=== PATIENT | female | born 1960 | race Caucasian/White ===

== ENCOUNTER 2017-11-22 11:39 | Inpatient (IN) | payer OTHER ==
[~2017-11-22] VITALS: Ht 160 cm; Wt 61.2 kg
[~2017-11-22 11:39] MED LIST: HUMALOG100 UNIT/1 SC; HUMALOG100 UNITS/ SQ; LANCETS1 EACH; LEVEMIR 3M100 UNITS/ SQ; LEVEMIR100 UNIT/1 SQ; LEXAPRO10 MG PO; LIPITOR20 MG PO; LISINOPRIL2.5 MG PO; LORCET 10-6501 EACH PO; METFORMIN HCL500 MG PO; NOVOLOG100 UNITS1 SQ; PEN NEEDLE1 EA10; ZESTRIL2.5 MG PO
[2017-11-22] MEDS ORDERED: ONDANSETRON HCL INJ 2 MG/ML VIAL IV STA (12:19)
[2017-11-22] MEDS ORDERED: ASPIRIN 81 MG CHEW TAB PO ONE (12:30)
[2017-11-22 12:32] LABS: BASOPHILS # (AUTO) 0.1 (0.0-0.1); BASOPHILS % 0.4 % (0.0-1.0); EOSINOPHILS % 0.2 % (0.0-6.0); HEMATOCRIT 46.3 % (34.2-44.1); HEMOGLOBIN 16.1 g/dL (12.0-16.0); LYMPHOCYTES # (AUTO) 1.9 (1.0-3.2); LYMPHOCYTES % 15.6 % (18.0-39.1); MEAN CORPUSCULAR HEMOGLOBIN 30.6 pg (28-32); MEAN CORPUSCULAR HGB CONC 34.8 g/dL (31-35); MEAN CORPUSCULAR VOLUME 87.9 fL (81-99); MONOCYTES # (AUTO) 0.8 (0.2-0.8); MONOCYTES % 6.6 % (4.4-11.3); NEUTROPHILS # (AUTO) 9.4 (2.1-6.9); NEUTROPHILS % 76.7 % (38.7-80.0); PLATELET COUNT 378 x10e3/uL (140-360); RED BLOOD COUNT 5.27 x10e6/uL (3.6-5.1); RED CELL DISTRIBUTION WIDTH 12.2 % (11.7-14.4)
[2017-11-22 12:35] LABS: INR 0.98; PROTHROMBIN TIME 12.2 seconds (11.9-14.5)
[2017-11-22 12:36] LABS: PARTIAL THROMBOPLASTIN TIME 27.9 seconds (23.8-35.5)
[2017-11-22 12:44] LABS: ALANINE AMINOTRANSFERASE 17 IU/L (0-55); ALBUMIN 3.9 g/dL (3.5-5.0); ALBUMIN/GLOBULIN RATIO 1.3 (0.8-2.0); ALKALINE PHOSPHATASE 70 IU/L (40-150); AMYLASE 30 U/L (25-125); ANION GAP 20.1 mmol/L (8-16); BLOOD UREA NITROGEN 12 mg/dL (7-26); BUN/CREATININE RATIO 14 (6-25); CALCIUM 9.1 mg/dL (8.4-10.2); CARBON DIOXIDE 20 mmol/L (22-29); CHLORIDE 96 mmol/L (98-107); CREATINE KINASE 63 IU/L (29-168); CREATININE, SERUM 0.85 mg/dL (0.57-1.11); EST GLOMERULAR FILTRATION RATE > 60 ML/MIN (60-); GLUCOSE 281 mg/dL (74-118); LIPASE 10 U/L (8-78); POTASSIUM 4.1 mmol/L (3.5-5.1); SODIUM 132 mmol/L (136-145)
[2017-11-22 13:03] LABS: THYROID STIMULATING HORMONE 2.947 uIU/mL (0.350-4.940)
--- NOTE | 2017-11-22 13:10 | Diagnostic Imaging Report ---
PROCEDURE:ABDOMEN ACUTE SERIES W/PA CXR COMPARISON:Chest radiograph 02/15/2017 INDICATIONS:ABDOMINAL PAIN, ABDOMINAL RUQ PAIN FINDINGS: CHEST: Lungs are well-inflated and clear. No pleural effusions or pneumothorax. Cardiomediastinal silhouette is unremarkable. BOWEL PATTERN: No abnormally distended air-filled loops of large or small bowel. Normal amount of stool in the colon. Multiple punctate densities projecting over the right lower quadrant may represent intraluminal contents. No free air under the diaphragm or suspicious air-fluid levels on upright view SOFT TISSUES: No acute findings. BONES: No acute findings. CONCLUSION: 1. No acute thoracic abnormality. 2. No evidence of bowel obstruction. Dictated by: Mike Prince M.D. on 11/22/2017 at 13:12 Electronically approved by: Mike Prince M.D. on 11/22/2017 at 13:12
--- NOTE | 2017-11-22 13:49 | Diagnostic Imaging Report ---
PROCEDURE:US GALLBLADDER COMPARISON:None. INDICATIONS:ABDOMEN PAIN; THROWING UP FOR 4 DAYS FINDINGS: LIVER: Size:15 cm in the right midclavicular line, normal Appearance:Normal echogenicity, smooth contour Mass:No focal masses GALLBLADDER: Stones/Sludge:None Appearance:No wall thickening, pericholecystic fluid or hydrops. 0.5 x 0.2 x 0.4 cm polyp. Sonographic Garcia's Sign:Negative BILE DUCTS: Intrahepatic Ducts:No dilation Extrahepatic Ducts:Common bile duct measures 0.3 cm, no dilatation. PANCREAS: Limited evaluation secondary to overlying bowel gas. Visualized portions of proximal body are normal. RIGHT KIDNEY: Size:10.7 cm in length Echogenicity:Normal Collecting System:No hydronephrosis Stone:None Cyst/Mass:None VESSELS: Aorta:Atherosclerotic calcifications. Otherwise, visualized portions are normal. Inferior Vena Cava:Visualized portions are normal. Main Portal Vein:1 cm, normal size with hepatopetal flow. FREE FLUID: No ascites or pleural effusions. CONCLUSION: No acute sonographic abnormalities. Small gallbladder polyp. Dictated by: Mike Prince M.D. on 11/22/2017 at 13:53 Electronically approved by: Mike Prince M.D. on 11/22/2017 at 13:53
[2017-11-22 13:53] LABS: CLARITY,URINE CLEAR (CLEAR); COLOR,URINE YELLOW (YELLOW); LEUKOCYTE ESTERASE ,URINE NEGATIVE (NEGATIVE); NITRITE,URINE NEGATIVE (NEGATIVE)
[2017-11-22 13:54] LABS: BILIRUBIN,URINE 1+ (NEGATIVE); KETONES,URINE 3+ (NEGATIVE); PROTEIN,URINE DIPSTICK NEGATIVE (NEGATIVE); URINE UROBILINOGEN 0.2 mg/dL (0.2 - 1)
[2017-11-22 13:55] LABS: BACTERIA,URINE FEW /HPF; EPITHELIAL CELLS,URINE FEW /LPF
[2017-11-22 13:56] LABS: RBC,URINE 0-5 /HPF (0-5)
[2017-11-22] MEDS ORDERED: SODIUM CHLORIDE 0.9% 1000ML 1,000 ML IV SCH (15:00)
[2017-11-22] MEDS: SODIUM CHLORIDE 0.9% 1000ML 1,000 ML IV STA ×2 (15:23→16:52)
[2017-11-22] MEDS ORDERED: DEXTROSE 50% SYRINGE 50 ML IV PRN (15:45)
[2017-11-22] MEDS ORDERED: ONDANSETRON HCL INJ 2 MG/ML VIAL IV PRN (15:45)
[2017-11-22] MEDS ORDERED: DEXTROSE 5%/0.45% SOD CHL 1,000 ML IV ONE ×2 (16:41→17:00)
--- NOTE | 2017-11-22 16:43 | Diagnostic Imaging Report ---
PROCEDURE: CT ABDOMEN AND PELVIS WITH CONTRAST TECHNIQUE: The abdomen and pelvis were scanned utilizing a multidetector helical scanner from the diaphragm to the lesser trochanter after the IV administration of 100 cc of Isovue 370 and the oral administration of water. Coronal and sagittal multiplanar reformations were obtained. DLP: 458.27 mGy-cm COMPARISON: CT abdomen and pelvis 04/02/2015 and 02/04/2014. Same day gallbladder ultrasound, chest radiograph, and KUB. HIDA scan and MRCP 04/04/2015. INDICATIONS: ABDOMINAL PAIN FINDINGS: LOWER THORAX: Normal. HEPATOBILIARY: No focal hepatic lesions. No biliary ductal dilatation. SPLEEN: No splenomegaly. PANCREAS: No focal masses or ductal dilatation. ADRENALS: No adrenal nodules. KIDNEYS/URETERS: No hydronephrosis, stones, or solid mass lesions. Tiny hypodensity in the superior right renal pole, too small to characterize but likely a cyst. PELVIC ORGANS/BLADDER: Stable appearance of the uterus since 02/04/2014 with prominence of the uterine vessels. No adnexal masses. Tubal ligation clips. No bladder wall thickening. PERITONEUM / RETROPERITONEUM: No free air or fluid. LYMPH NODES: No lymphadenopathy. VESSELS: Moderate atherosclerotic calcifications. Celiac, superior mesenteric, and inferior mesenteric arteries are patent. GI TRACT: No distention or wall thickening. Prominent gastric folds. Moderate amount of stool throughout the colon. Appendix not clearly visualized, although no soft tissue stranding or lymphadenopathy to suggest appendicitis. BONES AND SOFT TISSUES: Unremarkable. IMPRESSION: No acute abnormalities in the abdomen and pelvis. Prominent gastric folds which may reflect gastritis. Unremarkable CT appearance of the gallbladder. Of note, HIDA scan 04/04/2015 notes a gallbladder ejection fraction which supports the clinical diagnosis of chronic cholecystitis/gallbladder dyskinesia. Clinical correlation recommended. Dictated by: Mike Prince M.D. on 11/22/2017 at 16:46 Electronically approved by: Mike Prince M.D. on 11/22/2017 at 16:46
[2017-11-22] MEDS: METRONIDAZOLE 500MG/NS 100ML 100 ML IV SCH (16:50)
[2017-11-22] MEDS: INSULIN REGULAR, HUMAN 3ML VL 100 UNIT in SODIUM CHLORIDE 0.45% 100 ML 99 ML IV SCH ×2 (16:55)
--- NOTE | 2017-11-22 17:50 | History and Physical ---
CHIEF COMPLAINT: Nausea, vomiting, upper abdominal pain since last 3 to 4 days. HISTORY OF PRESENT MEDICAL ILLNESS: A 57-year-old pleasant white female with past medical history of multiple medical problems was admitted at [facility] with the above complaints. Patient was seen in my office yesterday with the above complaints. As per patient, she started having nausea, vomiting, upper abdominal pain since last 3 to 4 days, progressively getting worse; and, hence, patient came to my office yesterday. I referred patient to ER for further care and treatment. Patient came in ER today with the above complaints. No chest pain, no shortness of breath. No loss of consciousness. No palpitations. No headaches. No hematemesis, no melena, no hematuria, no dysuria. No fever, no cough, no witnessed seizures. PAST MEDICAL HISTORY 1. Insulin-dependent diabetes mellitus. 2. Hypertension. 3. Dyslipidemia. 4. Depression. 5. COPD. 6. Lung nodules. 7. Abnormal LFT. ALLERGIES: NO KNOWN DRUG ALLERGIES. MEDICATIONS: As listed in chart. REVIEW OF SYSTEMS: As per HPI. FAMILY HISTORY: Noncontributory. PHYSICAL EXAMINATION GENERAL: The patient is alert, awake, oriented x3, in no apparent distress, lying in bed. VITAL SIGNS: Temperature is 98. Pulse is 80 per minute. Respiratory rate is 18 per minute. Blood pressure is 122/84. Saturation is 98%. SKIN: No cyanosis. No icterus. No pallor. HEENT: Normocephalic, atraumatic. PERRLA plus. NECK: Soft and supple. No JVD. No carotid bruit. No lymphadenopathy. LUNGS: Air entry bilaterally equal. No rales or rhonchi. HEART: S1 and S2. No murmur, no gallop, no rub. ABDOMEN: Soft. Epigastric tenderness plus. Bowel sounds plus. CENTRAL NERVOUS SYSTEM: Alert, awake, oriented x3. No focal deficit. EXTREMITIES: No cyanosis, no clubbing, no edema. Peripheral pulses present. No calf pain. LABS ON ADMISSION TO ER: White count 12.2, hemoglobin 16.1, hematocrit 46.3, platelet 378. Sodium 132, potassium 4.1, chloride 96, bicarb 20, BUN 12, creatinine 0.8, glucose 281. Anion gap is 20.1. LFTs noted. Cardiac enzymes x1 negative. Amylase, lipase normal. TSH 2.9. Urine shows WBCs 11-20. Ultrasound of gallbladder shows no acute sonographic abnormality, small gallbladder polyp. Chest x-ray and x-ray KUB, no acute thoracic abnormality, no evidence of bowel obstruction. CT abdomen and pelvis pending. ASSESSMENT 1. Mild diabetic ketoacidosis. 2. Urinary tract infection. 3. Nausea, vomiting, abdominal pain, likely gastritis, rule out peptic ulcer disease. PLAN: Admit patient to ICU. Endocrine consult Dr. Tavera. He is aware about the patient. He has given orders for DKA to ER doctor. Serial lytes, serial Accu-Cheks. IV Levaquin, IV Flagyl. GI consultation Dr. Mattson. IV Protonix. Clear-liquid diet. Further care and treatment as per clinical course while patient in the hospital. Discussed with patient in detail. Job#: [id number] GRETA
[2017-11-22] MEDS ORDERED: MAGNESIUM SULF 1GRAM/DEXTROSE 100 ML IV PRN (18:00)
[2017-11-22] MEDS ORDERED: POTASSIUM CHLORIDE 20MEQ/100ML 100 ML IV PRN (18:00)
[2017-11-22] MEDS: LEVOFLOXACIN 500MG/D5W 100ML 100 ML IV SCH (19:12)
[2017-11-22] MEDS ORDERED: SODIUM CHLORIDE 0.9% 50ML 50 ML ONE (19:44)
[2017-11-22] MEDS ORDERED: IOPAMIDOL 370 MG/ML 200 ML INFUS..BTL INJ ONE (19:44)
[2017-11-23] MEDS: METRONIDAZOLE 500MG/NS 100ML 100 ML IV SCH ×2 (00:52→08:29)
[2017-11-23] MEDS: INSULIN REGULAR, HUMAN 3ML VL 100 UNIT in SODIUM CHLORIDE 0.45% 100 ML 99 ML IV SCH ×2 (03:14)
[2017-11-23] MEDS ORDERED: NOVOLOG100 UNITS1 SQ (05:19)
[2017-11-23 05:35] LABS: BASOPHILS # (AUTO) 0.1 (0.0-0.1); BASOPHILS % 0.5 % (0.0-1.0); EOSINOPHILS % 0.2 % (0.0-6.0); HEMATOCRIT 42.7 % (34.2-44.1); HEMOGLOBIN 14.8 g/dL (12.0-16.0); LYMPHOCYTES # (AUTO) 1.5 (1.0-3.2); LYMPHOCYTES % 12.4 % (18.0-39.1); MEAN CORPUSCULAR HEMOGLOBIN 30.3 pg (28-32); MEAN CORPUSCULAR HGB CONC 34.7 g/dL (31-35); MEAN CORPUSCULAR VOLUME 87.5 fL (81-99); MONOCYTES # (AUTO) 0.8 (0.2-0.8); MONOCYTES % 6.6 % (4.4-11.3); NEUTROPHILS # (AUTO) 9.9 (2.1-6.9); NEUTROPHILS % 79.7 % (38.7-80.0); PLATELET COUNT 299 x10e3/uL (140-360); RED BLOOD COUNT 4.88 x10e6/uL (3.6-5.1); RED CELL DISTRIBUTION WIDTH 12.1 % (11.7-14.4)
[2017-11-23 06:02] LABS: ALANINE AMINOTRANSFERASE 15 IU/L (0-55); ALBUMIN 3.4 g/dL (3.5-5.0); ALBUMIN/GLOBULIN RATIO 1.3 (0.8-2.0); ALKALINE PHOSPHATASE 57 IU/L (40-150); ANION GAP 15.2 mmol/L (8-16); BLOOD UREA NITROGEN 13 mg/dL (7-26); BUN/CREATININE RATIO 16 (6-25); CALCIUM 8.3 mg/dL (8.4-10.2); CARBON DIOXIDE 21 mmol/L (22-29); CHLORIDE 98 mmol/L (98-107); CREATININE, SERUM 0.79 mg/dL (0.57-1.11); EST GLOMERULAR FILTRATION RATE > 60 ML/MIN (60-); GLUCOSE 244 mg/dL (74-118); POTASSIUM 4.2 mmol/L (3.5-5.1); SODIUM 130 mmol/L (136-145)
[2017-11-23] MEDS: PANTOPRAZOLE 40 MG 10ML VIAL IV SCH (08:29)
[2017-11-23] MEDS ORDERED: ACETAMINOPHEN 325 MG TAB PO PRN (08:45)
[2017-11-23] MEDS ORDERED: INSULIN LISPRO 100 UNIT/1 ML 3ML VIAL SQ STA (08:52)
[2017-11-23] MEDS: LEVOFLOXACIN 500MG/D5W 100ML 100 ML IV SCH (09:35)
[2017-11-23] MEDS: INSULIN LISPRO 100 UNIT/1 ML 3ML VIAL SQ SCH ×3 (14:02→22:04)
[2017-11-23] MEDS ORDERED: SODIUM CHLORIDE 0.45% 1,000 ML IV SCH (14:15)
[2017-11-23 14:24] LABS: FREE T4 (FREE THYROXINE) 0.88 ng/dL (0.9-1.8); THYROID STIMULATING HORMONE 2.59 uIU/mL (0.350-4.940)
[2017-11-23 15:27] LABS: ANION GAP 21.2 mmol/L (8-16); BLOOD UREA NITROGEN 15 mg/dL (7-26); BUN/CREATININE RATIO 16 (6-25); CALCIUM 8.5 mg/dL (8.4-10.2); CARBON DIOXIDE 15 mmol/L (22-29); CHLORIDE 97 mmol/L (98-107); CREATININE, SERUM 0.94 mg/dL (0.57-1.11); EST GLOMERULAR FILTRATION RATE > 60 ML/MIN (60-); POTASSIUM 4.2 mmol/L (3.5-5.1); SODIUM 129 mmol/L (136-145)
[2017-11-23 15:29] LABS: GLUCOSE 408 mg/dL (74-118)
[2017-11-23] MEDS ORDERED: SODIUM CHLORIDE 0.9% 1000ML 1,000 ML ONE (15:46)
--- NOTE | 2017-11-23 17:03 | Consultation ---
DATE OF CONSULTATION: November 22, 2017 ENDOCRINE CONSULTATION This is a patient of Dr. Chilel. Thank you very much for referring this patient. This is a 57-year-old white female who is known to me from her previous hospital admission. She came to the hospital with history of nausea and vomiting. Her blood sugar was around 281 and anion gap was elevated at 21. The patient is a known diabetic for almost 8 years and she is supposed to be taking Levemir insulin twice a day and Humalog with each meal. Patient tells me that her blood sugars have been low so she has backed off taking the Levemir and takes on Humalog 4 to 6 units three times a day depending upon the blood sugars. Patient is a smoker. She also has history of COPD and hypertension. PHYSICAL EXAMINATION GENERAL: The patient is alert, awake, a little bit apprehensive. She is slightly dehydrated. VITALS: Heart rate is around 100. Blood pressure is 130/80 mmHg. HEENT: Examination essentially unremarkable. Thyroid is palpable. Clinically she is near euthyroid. CHEST: Bilateral vesicular breathing. She has mild bronchospasm. CARDIAC: First and second heart sounds. There is no 3rd or 4th heart sound. Ejection systolic murmur grade 2/6. 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 CLINICAL IMPRESSION 1. Diabetes mellitus type 1 . 2. Diabetic ketoacidosis. 3. Abdominal pain. 4. Chronic obstructive pulmonary disease. PLAN: At this time is to taper off the insulin drip slowly, monitor her blood sugars and put her back on the subcutaneous insulin. Thanks for referring this patient. I will be following this patient with you. Job#: [id number] VERNON
[2017-11-23 17:12] VITALS: BP 144/65
[2017-11-23 17:13] VITALS: BP 144/65
[2017-11-23 17:44] VITALS: BP 144/65
[2017-11-23 17:48] VITALS: BP 144/65
[2017-11-23 20:00] VITALS: BP 146/67
[2017-11-23 20:17] VITALS: BP 146/67
[2017-11-23] MEDS ORDERED: ZOLPIDEM TARTRATE 5 MG TAB PO PRN (21:00)
[2017-11-23] MEDS: INSULIN DETEMIR 100 UNIT/ML PEN SQ SCH (22:05)
[2017-11-24 00:38] VITALS: BP 101/50
[2017-11-24 04:00] VITALS: BP 134/66
[2017-11-24 06:11] LABS: BASOPHILS % 0.5 % (0.0-1.0); EOSINOPHILS # (AUTO) 0.2 (0.0-0.4); EOSINOPHILS % 1.8 % (0.0-6.0); HEMATOCRIT 43.4 % (34.2-44.1); LYMPHOCYTES # (AUTO) 3.2 (1.0-3.2); LYMPHOCYTES % 37.8 % (18.0-39.1); MEAN CORPUSCULAR HEMOGLOBIN 30.4 pg (28-32); MEAN CORPUSCULAR HGB CONC 34.6 g/dL (31-35); MONOCYTES % 11.2 % (4.4-11.3); NEUTROPHILS # (AUTO) 4.1 (2.1-6.9); NEUTROPHILS % 48.3 % (38.7-80.0); PLATELET COUNT 322 x10e3/uL (140-360); RED BLOOD COUNT 4.93 x10e6/uL (3.6-5.1); RED CELL DISTRIBUTION WIDTH 12.1 % (11.7-14.4)
[2017-11-24 06:43] LABS: ALANINE AMINOTRANSFERASE 13 IU/L (0-55); ALBUMIN 3.4 g/dL (3.5-5.0); ALBUMIN/GLOBULIN RATIO 1.4 (0.8-2.0); ALKALINE PHOSPHATASE 55 IU/L (40-150); ANION GAP 12.2 mmol/L (8-16); BLOOD UREA NITROGEN 10 mg/dL (7-26); BUN/CREATININE RATIO 14 (6-25); CALCIUM 8.8 mg/dL (8.4-10.2); CARBON DIOXIDE 28 mmol/L (22-29); CHLORIDE 99 mmol/L (98-107); CREATININE, SERUM 0.72 mg/dL (0.57-1.11); EST GLOMERULAR FILTRATION RATE > 60 ML/MIN (60-); POTASSIUM 4.2 mmol/L (3.5-5.1); SODIUM 135 mmol/L (136-145)
[2017-11-24 06:53] LABS: GLUCOSE 46 mg/dL (74-118)
[2017-11-24] MEDS: INSULIN LISPRO 100 UNIT/1 ML 3ML VIAL SQ SCH ×6 (07:30→17:03)
--- NOTE | 2017-11-24 07:36 | Consultation ---
DATE OF CONSULTATION: November 23, 2017 GASTROENTEROLOGY CONSULTATION REFERRING PHYSICIAN: Dr. Douglass REASON FOR CONSULTATION: Nausea and vomiting. HISTORY OF PRESENT ILLNESS: Ms. Archuleta is a pleasant 57-year-old woman with below history. She came in with nausea, vomiting and had DKA. She reports a history of brittle diabetes. She reports that earlier this week she ate out at [employer]. A family member ate the same thing she ate. They both became ill. However, she became more ill than the other family members who just had nausea. She had nausea, vomiting, epigastric pain for about 3 days. She came in to the ER when she was not able to tolerate p.o. and was dehydrated. She has not had any alteration of bowels. She has not had any overt bleeding. PAST MEDICAL HISTORY 1. Insulin-dependent diabetes mellitus, which she reports is brittle and has a history of DKA. 2. Hypertension. 3. Dyslipidemia. 4. Depression. 5. COPD. 6. Lung nodules. 7. History of elevated LFTs. MEDICATION ALLERGIES: REVIEWED. PLEASE SEE [facility] MEDICATION RECONCILIATION FORM. MEDICATION: Reviewed. Please see [facility] medication reconciliation form. SOCIAL HISTORY: Denies any alcohol. No illicit substances. History of tobacco positive. FAMILY HISTORY: Reviewed and noncontributory. REVIEW OF SYSTEMS: A 10-system review is otherwise unremarkable. PHYSICAL EXAMINATION GENERAL: Pleasant, alert and oriented and in no acute distress. HEENT: Pupils equal, round and reactive. NECK: Supple. LUNGS: Clear. CARDIOVASCULAR: S1 and S2. ABDOMEN: Soft. Mildly tender in the epigastric region. No rebound, guarding or mass. EXTREMITIES: No clubbing, cyanosis or edema. PSYCH: Calm and cooperative. NEUROLOGIC: Nonfocal. HEM/ONC: No bruising or adenopathy. Electronic health records reviewed for laboratory and radiologic studies, as well as history. ASSESSMENT 1. Nausea, vomiting and epigastric pain, which I believe is an acute infectious gastritis/gastroenteritis: She had a suspicious food exposure with another family member who was also sick. I suspect that as she is already feeling better and able to tolerate p.o. and no longer having any vomiting that she will continue to improve with supportive care. 2. History of diabetes which is brittle and diabetic ketoacidosis: Already seen by endocrine. Diabetic ketoacidosis resolved. Encourage glycemic control. Thank you very much for asking me to see Ms. Archuleta. Any questions or concerns, please do not hesitate to contact me. Will follow with you. Job#: [id number] OSIEL
[2017-11-24 07:46] VITALS: BP 145/71
[2017-11-24] MEDS: INSULIN DETEMIR 100 UNIT/ML PEN SQ SCH (08:00)
[2017-11-24] MEDS: PANTOPRAZOLE 40 MG 10ML VIAL IV SCH (08:52)
[2017-11-24] MEDS: LEVOFLOXACIN 500MG/D5W 100ML 100 ML IV SCH (08:52)
[2017-11-24] MEDS ORDERED: PANTOPRAZOLE SO40 MG PO (10:59)
[2017-11-24] MEDS ORDERED: FLAGYL500 MG PO (11:00)
[2017-11-24] MEDS ORDERED: LEVAQUIN500 MG PO (11:00)
[2017-11-24 12:11] VITALS: BP 148/64
== END 2017-11-24 17:59 | disposition home or self-care (01) | DRG 638 ==
LOC: ER 11:39 → ERHOLD 15:51 → MED/SURG 11-23 17:05
PROVIDERS: ADMIT Internal Medicine; ATTEND Internal Medicine
DX: E11.10 Type 2 diabetes mellitus with ketoacidosis without coma (principal); N39.0 Urinary tract infection, site not specified; K29.70 Gastritis, unspecified, without bleeding; F17.210 Nicotine dependence, cigarettes, uncomplicated; J44.9 Chronic obstructive pulmonary disease, unspecified; Z79.4 Long term (current) use of insulin; E78.5 Hyperlipidemia, unspecified; F32.9 Major depressive disorder, single episode, unspecified
CPT/HCPCS: 36415; 74022; 74177; 76705; 80048; 80053; 81001; 82150; 82550; 82553; 82948; 83036; 83690; 83735; 84439; 84443; 84484; 85025; 85610; 85730; 87040; 87086; 93005; 99285; J1956; J2405; J3475; J7030; Q9967

== ENCOUNTER 2018-08-12 10:06 | Emergency (ER) | payer OTHER ==
[~2018-08-12] VITALS: Ht 160 cm; Wt 61.2 kg
[~2018-08-12 10:06] MED LIST changes: +FLAGYL500 MG PO; +LEVAQUIN500 MG PO; +PANTOPRAZOLE SO40 MG PO
[2018-08-12] MEDS ORDERED: TRAMADOL HCL 50 MG TAB PO NR (10:45)
[2018-08-12] MEDS ORDERED: ULTRAM 50MG50 MG PO (11:06)
[2018-08-12] MEDS ORDERED: ROBAXIN-750750 MG PO (11:06)
--- NOTE | 2018-08-12 11:41 | Diagnostic Imaging Report ---
EXAMINATION: CHEST 2 VIEWS INDICATION: Cough, thoracic back pain. COMPARISON: Chest radiograph 02/15/2017. FINDINGS: TUBES and LINES: None. LUNGS: Lungs are well inflated. Lungs are clear. There is no evidence of pneumonia or pulmonary edema. PLEURA: No pleural effusion or pneumothorax. HEART AND MEDIASTINUM: The cardiomediastinal silhouette is unremarkable. BONES AND SOFT TISSUES: Possible minimal loss of vertebral body height in a lower thoracic vertebral body, likely T11. No bony retropulsion. No evidence of displaced rib fracture. UPPER ABDOMEN: No free air under the diaphragm. IMPRESSION: Possible minimal compression deformity in a lower thoracic vertebral body, likely T11. Suggest clinical correlation for point tenderness at this location. Clear lungs. Signed by: Dr. Freda Busby MD on 08/12/2018 11:38 AM
--- NOTE | 2018-08-12 13:06 | NUR ---
PATIENT CALLED BACK TO TRIAGE FOR RE-EVALUATION AND DISCHARGE INFORMATION. SYLVIE Mendenhall SPEAKING WITH PATIENT.
== END 2018-08-12 13:14 | disposition home or self-care (01) ==
LOC: ER 10:06
DX: M54.6 Pain in thoracic spine (principal); S23.3XXA Sprain of ligaments of thoracic spine, initial encounter; I10 Essential (primary) hypertension; E11.9 Type 2 diabetes mellitus without complications; J44.9 Chronic obstructive pulmonary disease, unspecified; E78.5 Hyperlipidemia, unspecified; F32.9 Major depressive disorder, single episode, unspecified
CPT/HCPCS: 71046; 99283

== ENCOUNTER 2018-08-20 04:30 | Emergency (ER) | payer OTHER ==
[~2018-08-20] VITALS: Ht 160 cm; Wt 61.2 kg
[~2018-08-20 04:30] MED LIST changes: +ROBAXIN-750750 MG PO; +ULTRAM 50MG50 MG PO
--- NOTE | 2018-08-20 06:00 | NUR ---
per md, do not draw cbc, cmp.
[2018-08-20 06:01] LABS: CLARITY,URINE CLEAR (CLEAR); COLOR,URINE YELLOW (YELLOW); LEUKOCYTE ESTERASE ,URINE TRACE (NEGATIVE); NITRITE,URINE NEGATIVE (NEGATIVE); PROTEIN,URINE DIPSTICK NEGATIVE (NEGATIVE)
[2018-08-20 06:02] LABS: AMPHETAMINES SCREEN,URINE POSITIVE (NEGATIVE); BENZODIAZEPINES SCREEN,URINE NEGATIVE (NEGATIVE); KETONES,URINE NEGATIVE (NEGATIVE); PHENCYCLIDINE SCREEN,URINE NEGATIVE (NEGATIVE)
[2018-08-20 06:03] LABS: BILIRUBIN,URINE NEGATIVE (NEGATIVE); URINE UROBILINOGEN 0.2 mg/dL (0.2 - 1)
[2018-08-20 06:10] LABS: BACTERIA,URINE FEW /HPF; EPITHELIAL CELLS,URINE FEW /LPF; RBC,URINE 0-5 /HPF (0-5)
[2018-08-20] MEDS ORDERED: KEFLEX500 MG PO (06:26)
--- NOTE | 2018-08-20 07:02 | NUR ---
received report fromoff going nurse. patient in room in bed, family at bedside. no s/s o acute distress. resp even and nonlabored. pending dicharge orders from ER MD.
--- NOTE | 2018-08-20 07:02 | NUR ---
walking rounds with meghan felix
== END 2018-08-20 07:57 | disposition home or self-care (01) ==
LOC: ER 04:30
DX: R30.0 Dysuria (principal); N30.90 Cystitis, unspecified without hematuria; I10 Essential (primary) hypertension; E11.9 Type 2 diabetes mellitus without complications; J44.9 Chronic obstructive pulmonary disease, unspecified; F32.9 Major depressive disorder, single episode, unspecified
CPT/HCPCS: 36415; 80307; 81001; 82948; 99284

== ENCOUNTER → 2018-09-05 | Outpatient (CLI) | payer OTHER ==
[~2018-09-05] MED LIST changes: +KEFLEX500 MG PO
== END ==
LOC: MAMMO 10:33
PROVIDERS: ATTEND Internal Medicine
DX: Z12.31 Encounter for screening mammogram for malignant neoplasm of breast (principal)
CPT/HCPCS: 77067

== ENCOUNTER 2022-01-04 15:32 | Inpatient (IN) | payer OTHER ==
[~2022-01-04] VITALS: Ht 160 cm; Wt 63.7 kg
[2022-01-04] MEDS ORDERED: DEXAMETHASONE SOD PHOS 10 MG/1 ML VIAL IM ONE (16:15)
[2022-01-04] MEDS ORDERED: ALBUTEROL SULFATE HFA 8GM INHALATION AEROSOL INH PRN (16:15)
[2022-01-04] MEDS ORDERED: SODIUM CHLORIDE 0.9% 1000ML 1,000 ML IV STA (16:30)
[2022-01-04 17:34] LABS: BASOPHILS % 0.4 % (0.0-1.0); EOSINOPHILS # (AUTO) 0.1 (0.0-0.4); EOSINOPHILS % 0.9 % (0.0-6.0); HEMATOCRIT 44.7 % (34.2-44.1); HEMOGLOBIN 14.3 g/dL (12.0-16.0); LYMPHOCYTES # (AUTO) 0.6 (1.0-3.2); LYMPHOCYTES % 7.1 % (18.0-39.1); MEAN CORPUSCULAR HEMOGLOBIN 29.2 pg (28-32); MEAN CORPUSCULAR VOLUME 91.2 fL (81-99); MONOCYTES # (AUTO) 1.1 (0.2-0.8); MONOCYTES % 13.7 % (4.4-11.3); NEUTROPHILS # (AUTO) 6.1 (2.1-6.9); PLATELET COUNT 339 x10e3/uL (140-360)
[2022-01-04] MEDS: DEXAMETHASONE SOD PHOS 10 MG/1 ML VIAL IV SCH (17:36)
[2022-01-04 17:41] LABS: INR 0.84; PROTHROMBIN TIME 12.3 seconds (11.9-14.5)
[2022-01-04 17:42] LABS: PARTIAL THROMBOPLASTIN TIME 31.8 seconds (23.8-35.5)
[2022-01-04 17:51] LABS: ALANINE AMINOTRANSFERASE 12 IU/L (0-55); ALBUMIN 2.9 g/dL (3.5-5.0); ALBUMIN/GLOBULIN RATIO 0.7 (0.8-2.0); ALKALINE PHOSPHATASE 106 IU/L (40-150); ANION GAP 15.7 mmol/L (8-16); BLOOD UREA NITROGEN 13 mg/dL (7-26); BUN/CREATININE RATIO 16 (6-25); CALCIUM 9.1 mg/dL (8.4-10.2); CARBON DIOXIDE 30 mmol/L (22-29); CHLORIDE 97 mmol/L (98-107); CREATINE KINASE 69 IU/L (29-168); CREATININE, SERUM 0.81 mg/dL (0.57-1.11); GLUCOSE 319 mg/dL (74-118); MAGNESIUM 1.8 MG/DL (1.3-2.1); POTASSIUM 4.7 mmol/L (3.5-5.1); SODIUM 138 mmol/L (136-145)
[2022-01-04] MEDS ORDERED: ACETAMINOPHEN 325 MG TAB PO PRN (18:45)
[2022-01-04] MEDS ORDERED: DEXTROSE 50% SYRINGE 50 ML IV PRN (18:45)
[2022-01-04] MEDS ORDERED: INSULIN LISPRO 100 UNIT/1 ML 3ML VIAL SQ SCH (21:00)
[2022-01-04] MEDS ORDERED: HYDRALAZINE HCL 20 MG/ML VIAL IV PRN (21:45)
[2022-01-04] MEDS ORDERED: ONDANSETRON HCL INJ 2MG/ML 2ML 2 MG/ML VIAL IV PRN (21:45)
[2022-01-04] MEDS ORDERED: POLYETHYLENE GLYCOL 3350 17 GM PACK PO PRN (21:45)
[2022-01-04] MEDS ORDERED: humalog SC (22:32)
[2022-01-04] MEDS ORDERED: TRESIBA100 UNIT/1 SC (22:32)
[2022-01-04] MEDS ORDERED: LYRICA150 MG PO (22:32)
[2022-01-04] MEDS ORDERED: SIMVASTATIN20 MG PO (22:32)
[2022-01-05] VITALS (8 sets, daily range): BP systolic 119–159; BP diastolic 57–78
[2022-01-05] MEDS ORDERED: CYMBALTA30 MG PO (00:31)
[2022-01-05] MEDS: ACETAMINOPHEN 325 MG TAB PO PRN (03:40)
[2022-01-05 06:21] LABS: BASOPHILS % 0.3 % (0.0-1.0); HEMATOCRIT 40.1 % (34.2-44.1); HEMOGLOBIN 12.9 g/dL (12.0-16.0); LYMPHOCYTES # (AUTO) 0.7 (1.0-3.2); LYMPHOCYTES % 10.1 % (18.0-39.1); MEAN CORPUSCULAR HEMOGLOBIN 28.7 pg (28-32); MEAN CORPUSCULAR HGB CONC 32.2 g/dL (31-35); MEAN CORPUSCULAR VOLUME 89.1 fL (81-99); MONOCYTES # (AUTO) 0.6 (0.2-0.8); MONOCYTES % 8.3 % (4.4-11.3); NEUTROPHILS # (AUTO) 5.9 (2.1-6.9); NEUTROPHILS % 80.3 % (38.7-80.0); PLATELET COUNT 314 x10e3/uL (140-360); RED CELL DISTRIBUTION WIDTH 12.9 % (11.7-14.4)
[2022-01-05 07:03] LABS: ALBUMIN 2.5 g/dL (3.5-5.0); ALBUMIN/GLOBULIN RATIO 0.7 (0.8-2.0); ANION GAP 18.1 mmol/L (8-16); CALCIUM 8.3 mg/dL (8.4-10.2); CHOL/HDL RATIO 3.2 (3.0-3.6); CREATININE, SERUM 0.8 mg/dL (0.57-1.11); MAGNESIUM 1.7 MG/DL (1.3-2.1); PHOSPHORUS 3.7 MG/DL (2.3-4.7); POTASSIUM 5.1 mmol/L (3.5-5.1)
[2022-01-05 07:22] LABS: THYROID STIMULATING HORMONE 0.919 uIU/mL (0.350-4.940)
[2022-01-05] MEDS: FAMOTIDINE 20 MG TAB PO SCH ×2 (08:15→17:28)
[2022-01-05] MEDS: DEXAMETHASONE SOD PHOS 10 MG/1 ML VIAL IV SCH (08:16)
[2022-01-05] MEDS: DOCUSATE SODIUM 100 MG CAP PO SCH ×2 (08:17→17:00)
[2022-01-05] MEDS: PREGABALIN 75 MG CAP PO SCH ×3 (08:17→20:32)
[2022-01-05] MEDS: CHOLECALCIFEROL 400 UNIT TAB PO SCH (08:18)
[2022-01-05] MEDS: ENOXAPARIN INJ 80 MG/0.8 ML SYR SC SCH ×2 (08:18→17:28)
[2022-01-05] MEDS: SIMVASTATIN 20 MG TAB PO SCH (08:18)
[2022-01-05] MEDS ORDERED: SODIUM CHLORIDE 0.9% 250ML 250 ML ONE (08:45)
[2022-01-05] MEDS ORDERED: ZINC SULFATE 220 MG CAP PO SCH (09:00)
[2022-01-05] MEDS ORDERED: ASCORBIC ACID 500 MG TAB PO SCH (09:00)
[2022-01-05] MEDS ORDERED: DEXTROSE 50% SYRINGE 50 ML IV PRN ×2 (10:45→12:45)
[2022-01-05] MEDS ORDERED: INSULIN GLARGINE 100 UNITS/ML VIAL SQ SCH (12:00)
[2022-01-05] MEDS: INSULIN LISPRO 100 UNIT/1 ML 3ML VIAL SQ SCH ×3 (12:45→20:34)
[2022-01-05] MEDS ORDERED: REMDESIVIR 100MG 200 MG in SODIUM CHLORIDE 0.9% 100 ML IV ONE (15:00)
[2022-01-05] MEDS ORDERED: ENOXAPARIN INJ 80 MG/0.8 ML SYR SC SCH (17:00)
[2022-01-05] MEDS: ASCORBIC ACID 500 MG TAB PO SCH (17:28)
[2022-01-05] MEDS: INSULIN GLARGINE 100 UNITS/ML VIAL SQ SCH (20:35)
[2022-01-05] MEDS: TEMAZEPAM 15 MG CAP PO PRN (20:41)
[2022-01-06] VITALS (8 sets, daily range): BP systolic 121–142; BP diastolic 60–74
[2022-01-06] MEDS: ACETAMINOPHEN 325 MG TAB PO PRN (06:24)
[2022-01-06 07:30] LABS: BASOPHILS % 0.4 % (0.0-1.0); EOSINOPHILS % 0.4 % (0.0-6.0); HEMATOCRIT 39.2 % (34.2-44.1); HEMOGLOBIN 12.8 g/dL (12.0-16.0); LYMPHOCYTES # (AUTO) 1.9 (1.0-3.2); LYMPHOCYTES % 18.8 % (18.0-39.1); MEAN CORPUSCULAR HEMOGLOBIN 29.1 pg (28-32); MEAN CORPUSCULAR HGB CONC 32.7 g/dL (31-35); MEAN CORPUSCULAR VOLUME 89.1 fL (81-99); MONOCYTES # (AUTO) 1.5 (0.2-0.8); MONOCYTES % 14.7 % (4.4-11.3); NEUTROPHILS # (AUTO) 6.6 (2.1-6.9); NEUTROPHILS % 64.9 % (38.7-80.0); PLATELET COUNT 355 x10e3/uL (140-360); RED CELL DISTRIBUTION WIDTH 13.1 % (11.7-14.4)
[2022-01-06 07:52] LABS: ALBUMIN 2.4 g/dL (3.5-5.0); ALBUMIN/GLOBULIN RATIO 0.7 (0.8-2.0); ANION GAP 11.3 mmol/L (8-16); CALCIUM 8.3 mg/dL (8.4-10.2); CREATININE, SERUM 0.74 mg/dL (0.57-1.11); POTASSIUM 4.3 mmol/L (3.5-5.1)
[2022-01-06] MEDS: FAMOTIDINE 20 MG TAB PO SCH ×2 (08:28→16:06)
[2022-01-06] MEDS: DEXAMETHASONE SOD PHOS 10 MG/1 ML VIAL IV SCH (08:29)
[2022-01-06] MEDS: CEFTRIAXONE 2 GM in SODIUM CHLORIDE 0.9% 100 ML IV SCH (08:29)
[2022-01-06] MEDS: DOCUSATE SODIUM 100 MG CAP PO SCH ×2 (08:30→17:00)
[2022-01-06] MEDS: SIMVASTATIN 20 MG TAB PO SCH (08:31)
[2022-01-06] MEDS: PREGABALIN 75 MG CAP PO SCH ×3 (08:31→20:40)
[2022-01-06] MEDS: ENOXAPARIN INJ 80 MG/0.8 ML SYR SC SCH ×2 (08:31→17:23)
[2022-01-06] MEDS: ASCORBIC ACID 500 MG TAB PO SCH ×2 (08:31→17:23)
[2022-01-06] MEDS: ZINC SULFATE 50 MG CAP PO SCH (08:31)
[2022-01-06] MEDS: CHOLECALCIFEROL 400 UNIT TAB PO SCH (08:31)
[2022-01-06] MEDS: INSULIN LISPRO 100 UNIT/1 ML 3ML VIAL SQ SCH ×4 (08:35→20:41)
[2022-01-06] MEDS: INSULIN GLARGINE 100 UNITS/ML VIAL SQ SCH ×2 (08:49→20:41)
[2022-01-06] MEDS: REMDESIVIR 100MG 100 MG in SODIUM CHLORIDE 0.9% 100 ML IV SCH (14:15)
[2022-01-06] MEDS: TEMAZEPAM 15 MG CAP PO PRN (20:40)
[2022-01-07] VITALS (8 sets, daily range): BP systolic 119–134; BP diastolic 69–79
[2022-01-07] MEDS: INSULIN LISPRO 100 UNIT/1 ML 3ML VIAL SQ SCH ×4 (07:30→21:42)
[2022-01-07 07:56] LABS: BASOPHILS % 0.5 % (0.0-1.0); EOSINOPHILS # (AUTO) 0.1 (0.0-0.4); EOSINOPHILS % 1.2 % (0.0-6.0); HEMATOCRIT 42.2 % (34.2-44.1); HEMOGLOBIN 13.4 g/dL (12.0-16.0); LYMPHOCYTES # (AUTO) 2.4 (1.0-3.2); LYMPHOCYTES % 27.6 % (18.0-39.1); MEAN CORPUSCULAR HEMOGLOBIN 28.6 pg (28-32); MEAN CORPUSCULAR HGB CONC 31.8 g/dL (31-35); MONOCYTES # (AUTO) 1.2 (0.2-0.8); MONOCYTES % 13.6 % (4.4-11.3); NEUTROPHILS # (AUTO) 4.9 (2.1-6.9); NEUTROPHILS % 56.4 % (38.7-80.0); PLATELET COUNT 333 x10e3/uL (140-360); RED BLOOD COUNT 4.69 x10e6/uL (3.6-5.1); RED CELL DISTRIBUTION WIDTH 13.2 % (11.7-14.4)
[2022-01-07 08:17] LABS: ALBUMIN 2.5 g/dL (3.5-5.0); ALBUMIN/GLOBULIN RATIO 0.8 (0.8-2.0); ANION GAP 10.8 mmol/L (8-16); CALCIUM 8.3 mg/dL (8.4-10.2); CREATININE, SERUM 0.65 mg/dL (0.57-1.11); POTASSIUM 3.8 mmol/L (3.5-5.1)
[2022-01-07] MEDS: ASCORBIC ACID 500 MG TAB PO SCH ×2 (08:43→16:44)
[2022-01-07] MEDS: SIMVASTATIN 20 MG TAB PO SCH (08:43)
[2022-01-07] MEDS: ZINC SULFATE 50 MG CAP PO SCH (08:43)
[2022-01-07] MEDS: DEXAMETHASONE SOD PHOS 10 MG/1 ML VIAL IV SCH (08:43)
[2022-01-07] MEDS: DOCUSATE SODIUM 100 MG CAP PO SCH ×2 (08:43→16:44)
[2022-01-07] MEDS: PREGABALIN 75 MG CAP PO SCH ×3 (08:43→21:42)
[2022-01-07] MEDS: CHOLECALCIFEROL 400 UNIT TAB PO SCH (08:43)
[2022-01-07] MEDS: ENOXAPARIN INJ 80 MG/0.8 ML SYR SC SCH ×2 (08:43→16:44)
[2022-01-07] MEDS: CEFTRIAXONE 2 GM in SODIUM CHLORIDE 0.9% 100 ML IV SCH (08:43)
[2022-01-07] MEDS: FAMOTIDINE 20 MG TAB PO SCH ×2 (08:43→16:44)
[2022-01-07] MEDS: ACETAMINOPHEN 325 MG TAB PO PRN (08:44)
[2022-01-07] MEDS: INSULIN GLARGINE 100 UNITS/ML VIAL SQ SCH (11:20)
[2022-01-07] MEDS: REMDESIVIR 100MG 100 MG in SODIUM CHLORIDE 0.9% 100 ML IV SCH (12:30)
[2022-01-07] MEDS: AZITHROMYCIN 250 MG TAB PO SCH (16:44)
[2022-01-07] MEDS: TEMAZEPAM 15 MG CAP PO PRN (20:49)
[2022-01-08] VITALS (7 sets, daily range): BP systolic 113–140; BP diastolic 59–99
[2022-01-08] MEDS: ACETAMINOPHEN 325 MG TAB PO PRN (05:42)
[2022-01-08] MEDS: CHOLECALCIFEROL 400 UNIT TAB PO SCH (09:21)
[2022-01-08] MEDS: CEFTRIAXONE 2 GM in SODIUM CHLORIDE 0.9% 100 ML IV SCH (09:21)
[2022-01-08] MEDS: FAMOTIDINE 20 MG TAB PO SCH ×2 (09:22→17:10)
[2022-01-08] MEDS: NICOTINE 14 MG/EA PATCH TOP SCH (09:22)
[2022-01-08] MEDS: DEXAMETHASONE SOD PHOS 10 MG/1 ML VIAL IV SCH (09:22)
[2022-01-08] MEDS: DOCUSATE SODIUM 100 MG CAP PO SCH ×2 (09:23→17:09)
[2022-01-08] MEDS: PREGABALIN 75 MG CAP PO SCH ×3 (09:23→21:27)
[2022-01-08] MEDS: ASCORBIC ACID 500 MG TAB PO SCH ×2 (09:24→17:11)
[2022-01-08] MEDS: INSULIN LISPRO 100 UNIT/1 ML 3ML VIAL SQ SCH ×4 (09:31→21:23)
[2022-01-08 09:40] LABS: BASOPHILS % 0.4 % (0.0-1.0); EOSINOPHILS # (AUTO) 0.1 (0.0-0.4); EOSINOPHILS % 1.2 % (0.0-6.0); HEMATOCRIT 40.4 % (34.2-44.1); HEMOGLOBIN 12.9 g/dL (12.0-16.0); LYMPHOCYTES # (AUTO) 2.6 (1.0-3.2); LYMPHOCYTES % 34.2 % (18.0-39.1); MEAN CORPUSCULAR HEMOGLOBIN 28.9 pg (28-32); MEAN CORPUSCULAR HGB CONC 31.9 g/dL (31-35); MEAN CORPUSCULAR VOLUME 90.6 fL (81-99); MONOCYTES # (AUTO) 0.8 (0.2-0.8); MONOCYTES % 9.7 % (4.4-11.3); NEUTROPHILS # (AUTO) 4.1 (2.1-6.9); NEUTROPHILS % 53.6 % (38.7-80.0); PLATELET COUNT 296 x10e3/uL (140-360); RED BLOOD COUNT 4.46 x10e6/uL (3.6-5.1); RED CELL DISTRIBUTION WIDTH 12.9 % (11.7-14.4)
[2022-01-08 09:47] LABS: ALBUMIN 2.5 g/dL (3.5-5.0); ALBUMIN/GLOBULIN RATIO 0.9 (0.8-2.0); ANION GAP 16.4 mmol/L (8-16); CALCIUM 8.2 mg/dL (8.4-10.2); CREATININE, SERUM 0.9 mg/dL (0.57-1.11); POTASSIUM 4.4 mmol/L (3.5-5.1)
[2022-01-08] MEDS: ENOXAPARIN 30 MG/0.3 ML SYR SC SCH ×2 (12:19→17:09)
[2022-01-08] MEDS: SIMVASTATIN 20 MG TAB PO SCH (12:20)
[2022-01-08] MEDS: ZINC SULFATE 50 MG CAP PO SCH (12:20)
[2022-01-08] MEDS: REMDESIVIR 100MG 100 MG in SODIUM CHLORIDE 0.9% 100 ML IV SCH (14:18)
[2022-01-08] MEDS: AZITHROMYCIN 250 MG TAB PO SCH (17:11)
[2022-01-08] MEDS: TEMAZEPAM 15 MG CAP PO PRN (21:25)
[2022-01-09] VITALS (7 sets, daily range): BP systolic 126–148; BP diastolic 62–77
[2022-01-09] MEDS: NICOTINE 14 MG/EA PATCH TOP SCH (09:00)
[2022-01-09] MEDS: ENOXAPARIN 30 MG/0.3 ML SYR SC SCH (09:01)
[2022-01-09] MEDS: CEFTRIAXONE 2 GM in SODIUM CHLORIDE 0.9% 100 ML IV SCH (09:01)
[2022-01-09] MEDS: ZINC SULFATE 50 MG CAP PO SCH (09:02)
[2022-01-09] MEDS: ASCORBIC ACID 500 MG TAB PO SCH ×2 (09:02→16:16)
[2022-01-09] MEDS: SIMVASTATIN 20 MG TAB PO SCH (09:02)
[2022-01-09] MEDS: DEXAMETHASONE SOD PHOS 10 MG/1 ML VIAL IV SCH (09:02)
[2022-01-09] MEDS: FAMOTIDINE 20 MG TAB PO SCH ×2 (09:02→16:16)
[2022-01-09] MEDS: DOCUSATE SODIUM 100 MG CAP PO SCH ×2 (09:02→16:16)
[2022-01-09] MEDS: INSULIN LISPRO 100 UNIT/1 ML 3ML VIAL SQ SCH ×3 (09:04→16:17)
[2022-01-09 09:20] LABS: BASOPHILS % 0.4 % (0.0-1.0); EOSINOPHILS # (AUTO) 0.1 (0.0-0.4); EOSINOPHILS % 1.1 % (0.0-6.0); HEMATOCRIT 41.5 % (34.2-44.1); HEMOGLOBIN 13.3 g/dL (12.0-16.0); LYMPHOCYTES # (AUTO) 3.1 (1.0-3.2); LYMPHOCYTES % 27.8 % (18.0-39.1); MEAN CORPUSCULAR HEMOGLOBIN 28.7 pg (28-32); MEAN CORPUSCULAR VOLUME 89.4 fL (81-99); MONOCYTES # (AUTO) 0.8 (0.2-0.8); MONOCYTES % 7.5 % (4.4-11.3); NEUTROPHILS # (AUTO) 6.9 (2.1-6.9); NEUTROPHILS % 62.3 % (38.7-80.0); PLATELET COUNT 300 x10e3/uL (140-360); RED BLOOD COUNT 4.64 x10e6/uL (3.6-5.1); RED CELL DISTRIBUTION WIDTH 12.7 % (11.7-14.4)
[2022-01-09 09:43] LABS: ALBUMIN 2.7 g/dL (3.5-5.0); ALBUMIN/GLOBULIN RATIO 0.8 (0.8-2.0); ANION GAP 16.3 mmol/L (8-16); CALCIUM 8.7 mg/dL (8.4-10.2); CREATININE, SERUM 0.89 mg/dL (0.57-1.11); POTASSIUM 5.3 mmol/L (3.5-5.1)
[2022-01-09] MEDS: CHOLECALCIFEROL 400 UNIT TAB PO SCH (10:08)
[2022-01-09] MEDS: PREGABALIN 75 MG CAP PO SCH ×2 (10:08→16:15)
[2022-01-09] MEDS: REMDESIVIR 100MG 100 MG in SODIUM CHLORIDE 0.9% 100 ML IV SCH (14:06)
[2022-01-09 16:27] LABS: ANION GAP 15.8 mmol/L (8-16); CALCIUM 8.7 mg/dL (8.4-10.2); CREATININE, SERUM 0.79 mg/dL (0.57-1.11); POTASSIUM 4.8 mmol/L (3.5-5.1)
[2022-01-09] MEDS ORDERED: ASCORBIC ACID500 MG PO (16:44)
[2022-01-09] MEDS ORDERED: FAMOTIDINE20 MG PO (16:44)
[2022-01-09] MEDS ORDERED: DEXAMETHASONE4 MG PO (16:44)
== END 2022-01-09 18:10 | disposition home or self-care (01) | DRG 177 ==
LOC: ER 16:08 → ERHOLD 16:51 → MED/SURG3 23:56 → OBSVTOIN 01-06 06:24
PROVIDERS: ADMIT Internal Medicine; ATTEND Internal Medicine
PROC: 8E0ZXY6 Isolation (ICD-10-PCS; principal; 2022-01-04)
PROC: XW033E5 Introduction of Remdesivir Anti-infective into Peripheral Vein, Percutaneous Approach, New Technology Group 5 (ICD-10-PCS; 2022-01-06)
DX: U07.1 COVID-19 (principal); J12.82 Pneumonia due to coronavirus disease 2019; J96.01 Acute respiratory failure with hypoxia; J15.9 Unspecified bacterial pneumonia; J44.0 Chronic obstructive pulmonary disease with (acute) lower respiratory infection; E78.5 Hyperlipidemia, unspecified; E11.69 Type 2 diabetes mellitus with other specified complication; F17.210 Nicotine dependence, cigarettes, uncomplicated; E11.65 Type 2 diabetes mellitus with hyperglycemia; R91.8 Other nonspecific abnormal finding of lung field; F32.89 Other specified depressive episodes; Z79.4 Long term (current) use of insulin
CPT/HCPCS: 36415; 71045; 80048; 80053; 80061; 82550; 82553; 82948; 83036; 83735; 83880; 84100; 84443; 84484; 85025; 85610; 85730; 87040; 87070; 87205; 93005; 94664; 94760; 94799; 99284; G0378; J0248; J0456; J0696; J1100; J1650; J7030; J7050

== ENCOUNTER → 2022-02-08 | Outpatient (CLI) | payer OTHER ==
[~2022-02-08] MED LIST changes: +ASCORBIC ACID500 MG PO; +CYMBALTA30 MG PO; +DEXAMETHASONE4 MG PO; +FAMOTIDINE20 MG PO; +LYRICA150 MG PO; +SIMVASTATIN20 MG PO; +TRESIBA100 UNIT/1 SC; +humalog SC
== END ==
LOC: MAMMO 12:02
PROVIDERS: ATTEND Internal Medicine
DX: Z12.31 Encounter for screening mammogram for malignant neoplasm of breast (principal)
CPT/HCPCS: 77067